=== PATIENT | male | born 1960 | race Caucasian/White ===

== ENCOUNTER 2022-08-29 12:51 | Emergency (ER) | payer MEDICARE, OTHER ==
[~2022-08-29] VITALS: Ht 185.4 cm; Wt 68.0 kg
[2022-08-29] MEDS ORDERED: BUPRENORPHINE HC2 MG SL (14:00)
[2022-08-29] MEDS ORDERED: VENTOLIN HFA18 GM INH (14:01)
--- OUTSIDE RECORDS SUMMARY | 2022-08-29 16:46 | XMS ---
PreManage Notification: LUIS STEWART Security Prosecuting Attorney Events No recent Security Events currently on file CRITERIA MET - [facility] PROVID[facility] SMITH WONG Competency Evaluated Nurse Aide/Nursing Attendant 08/16/2021-Current PHONE: [phone] JOSE MARTIN CLAY [facility] Medicine: Geriatric Medicine Current PHONE: Unknown Carrie has no Care Guidelines for this patient. Shin VISIT COUNT (12 MO.) 3 [facility] Ranjith TOTAL 4 NOTE: Visits indicate total known visits. ED/UCC VISIT TRACKING (12 MO.) 08/29/2022 12:52 [facility] [place] TYPE: Emergency COMPLAINT: - R WRIST, L FOOT PAIN 11/19/2021 03:57 [facility] TYPE: Emergency DIAGNOSES: - Other chronic pain - Weakness - Paresthesia of skin - Extremity Weakness - Chest Pain - Pain in right shoulder 09/17/2021 13:28 [facility] TYPE: Emergency DIAGNOSES: - Depression, unspecified - Mental Health Evaluation - Suicidal Ideation 09/12/2021 03:35 [facility] TYPE: Emergency DIAGNOSES: - Pain - Chronic pain syndrome INPATIENT VISIT TRACKING (12 MO.) No inpatient visits to display in this time frame [email or web address]
== END 2022-08-29 15:48 | disposition home or self-care (01) ==
LOC: ED 12:51
DX: S63.501A Unspecified sprain of right wrist, initial encounter (principal); S93.602A Unspecified sprain of left foot, initial encounter; J44.9 Chronic obstructive pulmonary disease, unspecified; Z79.899 Other long term (current) drug therapy; X58.XXXA Exposure to other specified factors, initial encounter
CPT/HCPCS: 73110; 73630; 99283-25; A9270